=== PATIENT | female | born 1980 | race Caucasian/White ===

== ENCOUNTER 2017-10-17 09:18 | Outpatient (CLI) ==
[2012-08-11 17:22] VITALS: TEMP 97.6
[2015-05-05 20:51] VITALS: BMI 49.2
--- NOTE | 2017-10-17 10:06 | DI ---
EXAM: Three views of the left hand. History: Left hand pain. Findings: No acute fracture or dislocation. No abnormal calcifications or radiopaque foreign bodies . Joint spaces are preserved. Negative ulnar variance Impression: 1. No acute osseous abnormality. 2. Negative ulnar variance which can predispose to kienbocks disease. If pain persists, recommend f urther evaluation with MRI.
== END 2017-10-17 09:19 | disposition home or self-care (01) ==
LOC: RAD 09:18
PROVIDERS: ATTEND Emergency Medicine
DX: E11.9 Type 2 diabetes mellitus without complications (principal); I10 Essential (primary) hypertension; E78.5 Hyperlipidemia, unspecified; E66.9 Obesity, unspecified; M79.642 Pain in left hand
CPT/HCPCS: 36415; 80053; 80061; 84443; 85025

== ENCOUNTER 2017-11-02 13:11 | Outpatient (CLI) ==
[2012-08-11 17:22] VITALS: TEMP 97.6
[2015-05-05 20:51] VITALS: BMI 49.2
--- NOTE | 2017-11-02 17:25 | MRI ---
EXAM: MRI left wrist without contrast. HISTORY: Pain lateral wrist in the thumb. Thumb/palmar pain. No left wrist surgery reported.. TECHNIQUE: Using a local coil on a high field strength magnet multiplanar multisequence MRI performe d of the left wrist without intravenous or intra-articular gadolinium contrast.. COMPARISON: Three-view plain film examination left hand 10/17/2017.. FINDINGS: The alignment of the left wrist shows no dislocation or joint subluxations. There is agai n noted negative ulnar variance. No acute fracture. Some increased T2 signal intensity over the sec ond through fourth carpometacarpal articulations thought to be artifactual and lack of homogeneous fa t suppression given no correlated findings on coronal STIR and transaxial T2 fat-suppressed weighted imaging. No bone erosions. No scapholunate or lunotriquetral joint space widening. Trace fluid lef t distal radioulnar joint. The central triangular fibrocartilage disc grossly intact on this non-art hrographic examination. The carpal tunnel and its contents shows some slight intervening edema. There is additionally enlarg ement and increased T2 signal intensity prominence to the median nerve. Tiny synovial/ganglion cyst formation deep to the carpal tunnel measuring 3 mm. The extensor compartments I - intact without tenosynovitis.. IMPRESSION: No acute fracture, joint subluxations , tenosynovitis or bone erosions. Again noted negative ulnar variance in comparison to plain film radiographs left hand 10/17/2017. Slight intervening edema along the carpal tunnel. Enlargement and increased T2 signal intensity prom pts through the median nerve. Correlate clinically for signs/symptoms of carpal tunnel syndrome. Ti ny 3 mm synovial/ganglion cyst deep.
== END 2017-11-02 13:12 | disposition home or self-care (01) ==
LOC: RAD 13:11
PROVIDERS: ATTEND Emergency Medicine
DX: M25.532 Pain in left wrist (principal)

== ENCOUNTER 2018-03-30 14:51 | Outpatient (CLI) | payer OTHER ==
[2012-08-11 17:22] VITALS: TEMP 97.6
[2015-05-05 20:51] VITALS: BMI 49.2
== END 2018-03-30 14:52 | disposition home or self-care (01) ==
LOC: RHC-LAB 14:51
PROVIDERS: ATTEND Nurse Practitioner Family
DX: E11.9 Type 2 diabetes mellitus without complications (principal); E66.9 Obesity, unspecified
CPT/HCPCS: 36415; 80053; 80061; 83036; 85025